=== PATIENT | male | born 1950 | race Caucasian/White ===

== ENCOUNTER 2018-04-22 15:58 | Emergency (ER) | payer MEDICARE ==
[2018-04-22] MEDS ORDERED: Bupivacaine PF 0.5% 30 ML VIAL ONE (16:20)
[2018-04-22] MEDS ORDERED: Adacel (T-DAP) 0.5 ML VIAL ONE (16:42)
[2018-04-22] MEDS ORDERED: Clindamycin 150 MG CAP ONE (17:33)
== END 2018-04-22 17:49 | disposition home or self-care (01) ==
LOC: MADERS 15:58
DX: S61.313A Laceration without foreign body of left middle finger with damage to nail, initial encounter (principal); K21.9 Gastro-esophageal reflux disease without esophagitis; E78.5 Hyperlipidemia, unspecified; I10 Essential (primary) hypertension; Z79.891 Long term (current) use of opiate analgesic; Z79.899 Other long term (current) drug therapy; W26.0XXA Contact with knife, initial encounter
CPT/HCPCS: 11760; 90471; 90715; S0020